=== PATIENT | male | born 1940 | race Caucasian/White ===

== ENCOUNTER → 2016-03-20 | Outpatient (CLI) | payer BC ==
[~2016-03-20] MED LIST: ADVIN50050 INH; ALBU1NEB10 INH; ALBUAER19 INH; ASPCH81X PO; ATOR-22 PO; LISI-729 PO; MULT-506 PO; TIOTCAP INH
--- NOTE | 2016-03-20 09:18 | DIAGNOSTIC IMAGING REPORT ---
THORACIC SPINE 3 VIEWS HISTORY: Pain BACK PAIN COMPARISON: Lateral thoracic spine dated 01/16/2016 FINDINGS: Slight superior wedge deformities T3-T6. These appear to be pre-existing. Moderate degenerative disc changes throughout. No subluxation. IMPRESSION: Moderate degenerative change. Slight superior was deformities T3-T6 considered old. No acute process. Electronically signed by: Julio Cesar Woodard M.D. 03/20/2016 9:16 AM Dictated Date/Time: 03/20/2016 9:15 AM
--- NOTE | 2016-03-20 09:20 | DIAGNOSTIC IMAGING REPORT ---
L-SPINE MIN 4 VIEWS ROUTINE CLINICAL HISTORY: Back pain and COMPARISON STUDY: No previous studies for comparison. FINDINGS: There are calcifications projected over the left kidney. It is not possible to determine whether these are vascular calcifications or calculi. There are surgical clips in the right mid abdomen. This 5 lumbar type vertebral bodies. There is an age-indeterminate superior endplate compression deformity involving the L3 vertebra. There are no subluxations. No destructive lesions are visualized on conventional radiographic evaluation. IMPRESSION: Age-indeterminate superior endplate L3 compression deformity. Electronically signed by: Federico Duncan M.D. 03/20/2016 9:19 AM Dictated Date/Time: 03/20/2016 9:15 AM
== END | disposition home or self-care (01) ==
LOC: C.RAD1850 08:44
PROVIDERS: ATTEND Family Medicine
DX: M54.9 Dorsalgia, unspecified (principal); R93.7 Abnormal findings on diagnostic imaging of other parts of musculoskeletal system; M47.814 Spondylosis without myelopathy or radiculopathy, thoracic region